=== PATIENT | male | born 1980 ===

== ENCOUNTER 2023-04-07 20:11 | Emergency (ER) | payer BC ==
[2023-04-07] MEDS ORDERED: Calcium Chloride 10% 1 GM/10 ML Syringe IV ONE (20:15)
[2023-04-07] MEDS ORDERED: Norepinephrine Bit/D5W Premix 250 ML IV ONE (20:16)
[2023-04-07] MEDS ORDERED: EPINEPHrine 1:10,000 1 MG/10 ML Syringe IV ONE (20:24)
[2023-04-07] MEDS ORDERED: Sodium Chloride 0.9% 1,000 ML IV STA (22:35)
[2023-04-07] MEDS ORDERED: Norepinephrine Bit/D5W Premix 250 ML IV SCH (22:45)
[2023-04-08 05:22] LABS: HEPATITIS C AB# 0.11 INDEX (<0.8)
[2023-04-11 10:06] LABS: HIV SCREEN 4TH GENERATION WRFX Non Reactive (Non Reactive)
== END 2023-04-07 23:45 | disposition expired ==
LOC: MW.ED 20:11
DX: S20.212A Contusion of left front wall of thorax, initial encounter (principal); S00.83XA Contusion of other part of head, initial encounter; S40.029A Contusion of unspecified upper arm, initial encounter; S11.90XA Unspecified open wound of unspecified part of neck, initial encounter
CPT/HCPCS: 31500; 32551; 36415; 36430; 36680; 71045; 86706; 86803; 86850; 86900; 86901; 86920; 87340; 87389; 92950; 92960; 96360; 99285; J0171; J7030; P9016; G0475; J3490